=== PATIENT | female | born 1935 | race Caucasian/White ===

== ENCOUNTER → 2025-01-06 13:15 | Outpatient (REF) | payer MEDICARE, BC, SELFPAY | LOC: HWWDC 13:15 | PROVIDERS: ATTENDING PHYSICIAN Internal Medicine | DX: Z12.31 Encounter for screening mammogram for malignant neoplasm of breast (principal) | CPT/HCPCS: 77063; 77067 ==

== ENCOUNTER → 2025-01-23 11:12 | Outpatient (REF) | payer MEDICARE, BC, SELFPAY | LOC: HWRAD 11:12 | PROVIDERS: ATTENDING PHYSICIAN Internal Medicine | DX: E55.9 Vitamin D deficiency, unspecified (principal); M89.8X9 Other specified disorders of bone, unspecified site; M81.0 Age-related osteoporosis without current pathological fracture | CPT/HCPCS: 77080 ==